=== PATIENT | female | born 1965 | race Caucasian/White ===

== ENCOUNTER 2019-04-01 15:24 | Outpatient (CLI) | payer BC ==
--- NOTE | 2019-04-01 17:27 | RAD ---
RIGHT KNEE FOUR VIEWS: HISTORY: Rheumatoid arthritis. Injury after a fall today. Right knee pain. FINDINGS: There is no evidence of a fracture, dislocation, or other osseous abnormality. No osseous erosions a re seen. IMPRESSION: No acute osseous abnormality, right knee. POS: [facility]
--- NOTE | 2019-04-01 17:30 | RAD ---
LEFT KNEE FOUR VIEWS: HISTORY: Left knee pain in a patient with a history of rheumatoid arthritis. The patient fell today. Left kn ee pain. FINDINGS: There is no evidence of a fracture or dislocation. No joint space narrowing is seen. There is a sub centimeter sclerotic density seen in the proximal diaphysis of the femur, probably related to a small bone island. IMPRESSION: No acute osseous abnormality, left knee. POS: [facility]
--- NOTE | 2019-04-01 17:32 | RAD ---
RIGHT FOOT THREE VIEWS: HISTORY: Right foot pain after fall today. History of rheumatoid arthritis. COMPARISON: None. FINDINGS: Small erosions are seen at the medial aspect, metatarsal head, 5th toe. There is also suggestion of a tiny erosion at the base of the distal phalanx great toe. There is mild osteoarthritis involving t he first metatarsophalangeal joint, as well as the interphalangeal joint. No fracture, dislocation, or other osseous abnormality is seen involving the right foot. IMPRESSION: No acute osseous abnormality. POS: [facility]
--- NOTE | 2019-04-01 17:33 | RAD ---
RIGHT HAND THREE VIEWS: HISTORY: Fall today with right hand pain. COMPARISON: None. FINDINGS: Three views of the right hand show no evidence of acute fracture or dislocation. Severe degenerative change is seen surrounding the DIP joint of the index finger. IMPRESSION: Severe degenerative change surrounding the distal interphalangeal joint of the index finger. A fract ure through this region cannot be entirely excluded. Correlate with point tenderness in this locatio n. POS: [facility]
--- NOTE | 2019-04-01 17:35 | RAD ---
LEFT HAND THREE VIEWS: HISTORY: Fall today with left hand pain. FINDINGS: Three views of the left hand show no evidence of acute fracture or dislocation. There is degenerativ e change in the DIP joint of the index finger. Mild degenerative change is also seen in the first CM C joint. IMPRESSION: Degenerative changes without acute osseous abnormality. POS: [facility]
--- NOTE | 2019-04-01 17:35 | RAD ---
THREE VIEWS LEFT FOOT: 04/01/19 HISTORY: Left foot pain after a fall today. History of rheumatoid arthritis. FINDINGS: There is probably osteoarthritis involving the first metatarsophalangeal joint and to a lesser extent involving the interphalangeal joint great toe. No fracture or dislocation is seen. No juxta-articula r erosions are appreciated. The Lisfranc joint is normally aligned. No other findings. k IMPRESSION: 1. No acute osseous abnormality. 2. Prominent osteoarthritis first metatarsophalangeal joint. POS: [facility]
== END 2019-04-01 15:25 | disposition home or self-care (01) ==
LOC: BICRAD 15:24
PROVIDERS: ATTEND Internal Medicine Rheumatology
DX: M18.0 Bilateral primary osteoarthritis of first carpometacarpal joints (principal); M06.09 Rheumatoid arthritis without rheumatoid factor, multiple sites; M19.072 Primary osteoarthritis, left ankle and foot; M19.042 Primary osteoarthritis, left hand; M19.041 Primary osteoarthritis, right hand; Z79.899 Other long term (current) drug therapy
CPT/HCPCS: 36415; 82306; 82565; 84450; 84460; 85025; 85652; 86140

== ENCOUNTER 2019-12-03 15:16 | Emergency (ER) | payer BC, OTHER ==
[2019-12-03] MEDS ORDERED: Albuterol 200 PUFF (6.7GM INHALER) ONE (16:09)
[2019-12-03 16:40] LABS: #Basophils 0.1 thou/uL (0.0-0.2); #Eosinphils 0.1 thou/uL (0.0-0.7); #Lymphocytes 2.3 thou/uL (1.20-3.40); #Monocytes 0.6 thou/uL (0.11-0.59); %Eosinophils 1.4 % (0.0-10.0); %Lymphocytes 25.6 % (21.0-51.0); %Monocytes 6.1 % (0.0-10.0); %Neutrophils 65.9 % (42.0-75.0); Hemoglobin 12.6 g/dL (12.0-16.0); Mean Corpuscular HGB CONC 33.6 g/dL (32.0-36.0); Mean Corpuscular Hemoglobin 29.8 pg (27.0-31.0); Mean Corpuscular Volume 88.8 fL (78.0-98.0); Mean Platelet Volume 6.9 fL (7.4-10.4); Platelet Count 414 thou/uL (130-400); RBC Distribution Width 13.7 % (11.5-14.5); Red Blood Cell (RBC) Count 4.23 mill/uL (4.20-5.40)
[2019-12-03 17:02] LABS: ALT (SGPT) 14 U/L (8-55); AST (SGOT) 14 U/L (5-34); Albumin 4.2 g/dL (3.5-5.0); Alkaline Phosphatase 145 U/L (40-110); Anion Gap 15 mmol/L (10-20); BUN (Urea Nitrogen) 6 mg/dL (9.8-20.1); Bilirubin, Total 0.5 mg/dL (0.2-1.2); Calc. Creatinine Clearance 0 mL/min (70-130); Calcium 9.8 mg/dL (7.8-10.44); Carbon Dioxide 27 mmol/L (22-29); Chloride 100 mmol/L (98-107); Estimated GFR-MDRD 78; Globulin 3.5 g/dL (2.4-3.5); Glucose 101 mg/dL (70-105); Potassium 3.6 mmol/L (3.5-5.1); Protein, Total 7.7 g/dL (6.0-8.3); Sodium 138 mmol/L (136-145)
--- NOTE | 2019-12-03 17:35 | RAD ---
RADIOGRAPH CHEST 1 VIEW: DATE: 12/03/2019 HISTORY: 54-year-old female with cough and fever FINDINGS: There are no airspace densities, pulmonary edema, pneumothorax, or cardiomegaly. The lateral costophr enic angles are sharp. IMPRESSION: No acute cardiopulmonary findings.
[2019-12-03] MEDS ORDERED: predniSONE 20 MG TAB ONE (17:56)
[2019-12-03] MEDS ORDERED: Azithromycin 250 MG TAB ONE (17:56)
== END 2019-12-03 18:44 | disposition home or self-care (01) ==
LOC: ERS 15:16
DX: J44.1 Chronic obstructive pulmonary disease with (acute) exacerbation (principal); M19.90 Unspecified osteoarthritis, unspecified site; Z87.891 Personal history of nicotine dependence; Z79.51 Long term (current) use of inhaled steroids; Z79.891 Long term (current) use of opiate analgesic; Z79.899 Other long term (current) drug therapy
CPT/HCPCS: 71045; 80053; 83880; 84484; 85025; 87804; 93005; J7512; U0001

== ENCOUNTER 2020-03-03 22:14 | Inpatient (IN) | payer MEDICARE, BC, OTHER ==
[2020-03-04 01:37] VITALS: BMI 30.4
[2020-03-04] MEDS ORDERED: Acetaminophen 325 MG TAB PO PRN (02:52)
[2020-03-04] MEDS ORDERED: Calcium Carbonate 500 MG ChewTAB PO PRN (02:52)
[2020-03-04] MEDS ORDERED: Ondansetron ODT 4 MG TAB PO PRN (02:52)
[2020-03-04] MEDS ORDERED: Ondansetron PF 4 MG/2 ML Vial IVP PRN (02:52)
--- NOTE | 2020-03-04 03:55 | HP ---
PRIMARY CARE PHYSICIAN: Dr. Nagel. CHIEF COMPLAINT: Nausea, vomiting, and diarrhea. HISTORY OF PRESENT ILLNESS: The patient is a 55-year-old female, with past medical history significant for COPD and degenerative disk disease, who presents to [facility] for the above complaint. The patient reports that her symptoms started with a nonproductive cough and general malaise approximately 4 days ago. She then developed a headache that was generalized with a subjective fever. Over the past 24 hours, she has developed nausea, vomiting, and diarrhea. She reports approximately eight episodes of vomiting, some of which dry heaving. She denies any hematemesis. She has some associated abdominal pain. She reports approximately 10 watery stools in the past 24 hours. She denies any hematochezia or melena. She denies any dysuria. She denies any chest pain or shortness of breath. For these reasons, she presented to the [facility]. At the [facility], vital signs, patient had a fever of 101.3 with a normal blood pressure. She was tachycardic at 109, respirations were 20. She was 92% on room air. EKG was sinus rhythm. CT of the abdomen and pelvis showed lung base consolidation and ground-glass opacities. Right upper quadrant ultrasound showed patchy left greater than right lower lobe consolidation and ground-glass opacities concerning for multifocal pneumonia or atypical viral infection. CT of the chest was performed, but I am unable to find the results in the paperwork. Viral panel was negative. COVID antigen test was negative. Patient had a lactic acid of 2.7. WBCs were 13.4. BUN and creatinine were 21 and 1.0 respectively. ABG; pH is 7.39, pCO2 of 36.5, bicarb of 22.1, and PO2 of 37. LFTs were unremarkable and UA was unremarkable. Patient was given Dilaudid and Zofran, azithromycin and Rocephin and 2 L of normal saline with some symptom improvement. PAST MEDICAL HISTORY: 1. COPD. 2. Degenerative disk disease. 3. Osteoporosis. SURGICAL HISTORY: 1. Hysterectomy. 2. . SOCIAL HISTORY: The patient lives with her family. She has no history of smoking, illicit drug use, or alcohol intake. FAMILY HISTORY: Noncontributory to this case. ALLERGIES: SULFA. HOME MEDICATIONS: 1. Lyrica 150 mg p.o. t.i.d. 2. Fentanyl (Duragesic) patch 75 mcg transdermal q.3 days. 3. Advair HFA inhaler two inhalations daily. 4. Spiriva 18 mcg inhalation daily. 5. Valtrex 500 mg p.o. daily. 6. Lamictal 100 mg p.o. b.i.d. REVIEW OF SYSTEMS: All review of systems are negative unless otherwise stated in the HPI. PHYSICAL EXAMINATION: VITAL SIGNS: Temperature 98.5, blood pressure 106/62, heart rate 88, respirations 16, and SpO2 is 94% on 3 L nasal cannula. CONSTITUTIONAL: The patient is alert and oriented to person, place, and time. She is uncomfortable and nontoxic in appearance. HEAD: Atraumatic and normocephalic. EYES: PERRLA. Extraocular muscles intact. ENT: Nares patent bilaterally. Oropharynx clear. Uvula midline. Moist mucous membranes. No oral lesions. NECK: Supple. Trachea midline. No cervical adenopathy. Full range of motion. No neck stiffness. No JVD. RESPIRATIONS: Even and nonlabored. Rhonchi and rales auscultated throughout. CARDIOVASCULAR: S1, S2 appreciated. No murmurs, rubs, or gallops. ABDOMEN: Mildly diffuse tenderness to palpation. Abdomen is soft. Active bowel sounds. No rigidity. No guarding. No rebound tenderness. Negative Rovsing sign. Negative Gibson sign. BACK: No central spinous tenderness. No CVA tenderness. Full range of motion. MUSCULOSKELETAL: Arms, upper extremities, full range of motion, normal strength, sensation intact. Palpable radial pulses. Legs, full range of motion. Strength normal. Sensation intact. Palpable pedal pulses. No swelling. NEUROLOGIC: Patient is alert and oriented to person, place, and time. Moving all extremities. No focal deficits. PSYCHIATRIC: Normal affect. Oriented to person, place, and time. LABORATORIES AND DIAGNOSTICS: EKG, sinus rhythm. CT abdomen and pelvis, lung bases show consolidation, ground-glass opacities. Right upper quadrant ultrasound showed patchy left greater than right lower lobe consolidation and ground-glass opacities concerning for multifocal pneumonia or atypical viral infection. Viral panel was negative. Lactic acid of 2.7. Sodium 134, potassium 3.3, chloride 95, CO2 of 22, BUN 21, creatinine 1.0, glucose 85, T bili 0.8, alk phos 74, ALT 30, and AST 72. UA was unremarkable. WBCs 13.4, hemoglobin 13, hematocrit 38.1, and platelets 265. ABG; pH 7.39, pCO2 of 36.5, bicarb 22.1, and PO2 of 37. IMPRESSION AND PLAN: 1. Sepsis. We will admit the patient to telemetry floor inpatient status. Expected length of stay greater than two midnights. Patient presented to the [facility] febrile, tachycardic, and hypoxic. Lactic acid of 2.7. WBCs of 13.4. CT of the abdomen and pelvis consistent for multifocal pneumonia. COVID test was negative. Viral panel was negative. Patient is currently on 3 L nasal cannula, saturating 94%. No respiratory distress. We will continue Rocephin and azithromycin. We will recheck repeat lactic acid. Blood cultures are pending. We will obtain stool cultures, Clostridium difficile, ova and parasite. We will check acute phase reactants, CRP, D-dimer, and ferritin level. We will get a lipase, magnesium, and TSH level. 2. Pneumonia. CT consistent with multifocal lobar pneumonia. We will continue antibiotics and supportive care. 3. Dehydration. Patient presented with a BUN of 21 and a creatinine of 1.0. Patient received 2 L of normal saline at the [facility]. We will recheck levels in the a.m. 4. Hypokalemia, mild. Patient presented with a potassium of 3.3. We will give 40 mEq and we will recheck in the a.m. We will also recheck Mag level. 5. Chronic obstructive pulmonary disease. Patient is in no acute respiratory distress, saturating 92% on 3 L nasal cannula. We will restart the patient's home MDI inhalers. 6. Degenerative disk disease. Patient takes Lyrica and has a Duragesic patch. We will restart home medications when reconciled by nursing. 7. Lovenox for deep venous thrombosis prophylaxis and Pepcid for GI prophylaxis. Consult Physical Therapy. Patient is a full code. 8. Discussed this case with Dr. Deluca. Job ID: [id number]
[2020-03-04 05:12] LABS: Anion Gap 15 mmol/L (10-20); BUN (Urea Nitrogen) 15 mg/dL (9.8-20.1); Calc. Creatinine Clearance 84 mL/min (70-130); Calcium 8.4 mg/dL (7.8-10.44); Carbon Dioxide 22 mmol/L (22-29); Chloride 100 mmol/L (98-107); Estimated GFR-MDRD 69; Glucose 90 mg/dL (70-105); Lipase Less than 4 U/L (8-78); Magnesium 1.8 mg/dL (1.6-2.6); Potassium 3.2 mmol/L (3.5-5.1); Sodium 134 mmol/L (136-145)
[2020-03-04 05:22] LABS: CRP (Inflammatory) 30.73 mg/dL (= or < 0.5)
[2020-03-04 05:31] LABS: Ferritin 142.6 ng/mL (10-291); Thyroid Stimulating Hormone 0.5109 uIU/mL (0.35-4.94)
[2020-03-04 06:18] LABS: Band 29 % (5-11); Eosinophils 1 % (0-10); Hemoglobin 11.4 g/dL (12.0-16.0); Lymphocytes 6 % (21-51); MDiff Complete? YES; Mean Corpuscular HGB CONC 32.8 g/dL (32.0-36.0); Mean Corpuscular Hemoglobin 29.2 pg (27.0-31.0); Mean Corpuscular Volume 88.9 fL (78.0-98.0); Mean Platelet Volume 7.3 fL (7.4-10.4); Metamyelocyte 5 % (0-0); Monocytes 3 % (0-10); Myelocyte 2 % (0-0); Neutrophil 54 % (42-75); Platelet Count 256 thou/uL (130-400); RBC Distribution Width 13.9 % (11.5-14.5); White Blood Cell (WBC) Count 12.2 thou/uL (4.8-10.8)
[2020-03-04] MEDS ORDERED: Ipratropium Bromide 2.5 ml Neb NEB SCH (07:00)
[2020-03-04] MEDS: Mometasone 100 MCG/Formoterol 5 MCG 120 PUFF INHALER INH SCH ×2 (07:38→19:47)
[2020-03-04] MEDS ORDERED: Potassium Chloride 20 MEQ TAB PO SCH (09:00)
[2020-03-04] MEDS ORDERED: Famotidine/PF 20 mg/2ml Vial SLOW IVP SCH (09:00)
[2020-03-04] MEDS: valACYclovir 500 MG TAB PO SCH (09:40)
[2020-03-04] MEDS: Enoxaparin Sodium 40 MG/0.4 ML SYRINGE SC SCH (09:40)
[2020-03-04] MEDS: lamoTRIgine 100 MG TAB PO SCH ×2 (09:40→19:47)
--- NOTE | 2020-03-04 12:49 | PDOC.HOSPP ---
- Subjective Encounter Date: 03/04/20 Encounter Time: 11:20 Subjective: c/o left lower rib cage pain on deep breathing or moving says above is due to pna which she has before 4-5 times in the past no sob or palp she sees for pain mgmt, has fentanyl patch - Objective Vital Signs & Weight: Vital Signs (12 hours) Temp Pulse Resp BP Pulse Ox 03/04/20 11:30 98.7 F 75 20 84/47 L 93 L 03/04/20 09:45 98.9 F 79 14 99/51 L 96 03/04/20 04:00 98.4 F 86 16 90/53 L 95 03/04/20 01:58 94 L 03/04/20 01:31 98.5 F 88 16 106/62 94 L Weight Weight 161 lb I&O: 03/03/20 03/04/20 03/05/20 06:59 06:59 06:59 Intake Total 240 Output Total 900 Balance -660 Result Diagrams: 03/04/20 04:11 03/04/20 04:11 Hospitalist ROS - Medication Medications: Active Medications Generic Name Dose Route Start Last Admin Trade Name Freq PRN Reason Stop Dose Admin Enoxaparin Sodium 40 mg 03/04/20 09:00 03/04/20 09:40 Lovenox SC 40 mg 0900 GERALD Administration Lamotrigine 100 mg 03/04/20 09:00 03/04/20 09:40 Lamictal PO 100 mg BID GERALD Administration Mometasone Furoate/Formoterol Fumar 2 puff 03/04/20 06:30 03/04/20 07:38 Dulera 100 Mcg/5 Mcg Inhaler INH 2 puff BID-RT GERALD Administration Pantoprazole Sodium 40 mg 03/04/20 09:00 03/04/20 09:40 Protonix PO 40 mg DAILY GERALD Administration Valacyclovir HCl 500 mg 03/04/20 09:00 03/04/20 09:40 Valtrex PO 500 mg DAILY GERALD Administration - Exam General Appearance: awake alert Eye: PERRL, anicteric sclera ENT: no oropharyngeal lesions, moist mucosa Neck: supple, no JVD Heart: RRR, no murmur Respiratory: no wheezes, no rales Gastrointestinal: soft, non-tender, non-distended, normal bowel sounds Extremities: no cyanosis, no edema Neurological: cranial nerve grossly intact, no focal deficits Psychiatric: normal affect, A&O x 3 Hosp A/P (1) PNA (pneumonia) Code(s): J18.9 - PNEUMONIA, UNSPECIFIED ORGANISM Status: Acute Qualifiers: Pneumonia type: due to unspecified organism Laterality: bilateral (2) Chronic pain syndrome Code(s): G89.4 - CHRONIC PAIN SYNDROME Status: Chronic (3) Low back ache Code(s): M54.5 - LOW BACK PAIN Status: Chronic Qualifiers: Chronicity: chronic Back pain laterality: bilateral (4) COPD (chronic obstructive pulmonary disease) Status: Chronic Qualifiers: COPD type: chronic bronchitis - Plan she has seen in the past per patient await covid 19 results is on ceftriaxone and zithromax add lidocaine tts and motrin for pleuritic pain continue her home dose fentanyl tts nebs prn dc plan in 24hrs if she remains stable she needs to ambulate in the room/oob to chair
--- NOTE | 2020-03-04 13:21 | RAD ---
PORTABLE CHEST: Date: 03/04/2020 HISTORY: Pneumonia follow-up. COMPARISON: Most recent exam available of 12/03/2019. FINDINGS: Heart size is within normal limits. There are bibasilar lung changes which have more of a confluent a ppearance suggestive of infiltrate. IMPRESSION: Bibasilar infiltrates. POS: [facility]
[2020-03-04] MEDS: Pregabalin 75 MG CAP PO SCH (19:46)
[2020-03-04] MEDS: Ibuprofen 200 MG TAB PO PRN (19:47)
[2020-03-04] MEDS: Lidocaine 5% Patch TD SCH (19:48)
[2020-03-04] MEDS ORDERED: Azithromycin 500 MG in Sodium Chloride 0.9% 250 ML 250 ML IVPB SCH (20:00)
[2020-03-04] MEDS ORDERED: cefTRIAXone\\ROCEPHIN 1 GM in Sodium Chloride 0.9% 100 ML IVPB SCH (21:00)
[2020-03-04] MEDS: Guaifenesin DM 100-10/5 ML UDCUP PO PRN (21:57)
[2020-03-04] MEDS ORDERED: Citalopram 20 MG TAB PO SCH (22:15)
[2020-03-05] MEDS: Ibuprofen 200 MG TAB PO PRN ×2 (04:31→13:22)
[2020-03-05] MEDS: Mometasone 100 MCG/Formoterol 5 MCG 120 PUFF INHALER INH SCH ×2 (04:32→19:36)
[2020-03-05] MEDS ORDERED: Lidocaine 5% Patch TD SCH (09:00)
[2020-03-05] MEDS ORDERED: Tiotropium Bromide 4 GM INHALER IH SCH (09:00)
[2020-03-05] MEDS: Pregabalin 75 MG CAP PO SCH ×3 (09:11→20:44)
[2020-03-05] MEDS: Enoxaparin Sodium 40 MG/0.4 ML SYRINGE SC SCH (09:11)
[2020-03-05] MEDS: lamoTRIgine 100 MG TAB PO SCH ×2 (09:12→20:43)
[2020-03-05] MEDS: valACYclovir 500 MG TAB PO SCH (09:12)
[2020-03-05] MEDS: Lidocaine Patch Removal 1 EACH TOP SCH (09:12)
[2020-03-05] MEDS: Nystatin 500,000 UNITS/5 ML UDCUP SSW SCH ×3 (11:44→20:44)
[2020-03-05] MEDS ORDERED: Iopamidol-370 76% 500 ML 1 ML ONE (12:07)
[2020-03-05 12:22] LABS: SARS-CoV-2 MS2 Positive; SARS-CoV-2 N Gene Negative; SARS-CoV-2 S Gene Negative; SARS-CoV-2 orf1ab Negative
--- NOTE | 2020-03-05 12:23 | PDOC.HOSPP ---
- Subjective Encounter Date: 03/05/20 Encounter Time: 10:30 Subjective: has hoarseness her ruq and rib cage pain is better with lidocaine tts and motrin is needing nasal canula oxygen - Objective Vital Signs & Weight: Vital Signs (12 hours) Temp Pulse Resp BP Pulse Ox 03/05/20 12:00 98.9 F 72 18 105/58 L 97 03/05/20 09:11 95 03/05/20 08:00 98.9 F 64 18 98/52 L 95 03/05/20 04:00 98.2 F 71 20 102/57 L 100 Weight Weight 161 lb I&O: 03/04/20 03/05/20 03/06/20 06:59 06:59 06:59 Intake Total 240 1600 Output Total 900 Balance -660 1600 Result Diagrams: 03/04/20 04:11 03/04/20 04:11 Hospitalist ROS - Medication Medications: Active Medications Generic Name Dose Route Start Last Admin Trade Name Freq PRN Reason Stop Dose Admin Enoxaparin Sodium 40 mg 03/04/20 09:00 03/05/20 09:11 Lovenox SC 40 mg 09 GERALD Administration Fentanyl 25 mcg 03/04/20 16:45 03/04/20 17:57 Duragesic TD 25 mcg Q3D GERALD Administration Guaifenesin/Dextromethorphan 15 ml 03/04/20 03:02 03/04/20 21:57 Robitussin Dm PO 15 ml Q4H PRN Administration Cough Ibuprofen 400 mg 03/04/20 12:47 03/05/20 04:31 Motrin PO 400 mg Q8H PRN Administration left rib cage pain Lamotrigine 100 mg 03/04/20 09:00 03/05/20 09:12 Lamictal PO 100 mg BID GERALD Administration Lidocaine 1 patch 03/04/20 20:00 03/04/20 19:48 Lidoderm 5% Patch TD 1 patch 2000 GERALD Administration Miscellaneous Medication 1 each 03/05/20 08:00 03/05/20 09:12 Lidocaine Patch Removal TOP 1 each 08 GERALD Administration Mometasone Furoate/Formoterol Fumar 2 puff 03/04/20 06:30 03/05/20 04:32 Dulera 100 Mcg/5 Mcg Inhaler INH 2 puff BID-RT GERALD Administration Nystatin 500,000 units 03/05/20 13:00 03/05/20 11:44 Mycostatin SSW 500,000 units QID GERALD Administration Ondansetron HCl 4 mg 03/04/20 02:52 03/05/20 11:55 Zofran Odt PO 4 mg Q6H PRN Administration Nausea/Vomiting Ondansetron HCl 4 mg 03/04/20 02:52 03/04/20 20:19 Zofran IVP 4 mg Q6H PRN Administration Nausea/Vomiting Pantoprazole Sodium 40 mg 03/04/20 09:00 03/05/20 09:12 Protonix PO 40 mg DAILY GERALD Administration Pregabalin 150 mg 03/04/20 21:00 03/05/20 09:11 Lyrica PO 150 mg TID GERALD Administration Valacyclovir HCl 500 mg 03/04/20 09:00 03/05/20 09:12 Valtrex PO 500 mg DAILY GERALD Administration - Exam General Appearance: awake alert Eye: PERRL, anicteric sclera ENT: dry oral mucosa Neck: supple, no JVD Heart: RRR, no murmur Respiratory: no wheezes, no rales Gastrointestinal: soft, non-tender, non-distended, normal bowel sounds Extremities: no cyanosis, no edema Neurological: cranial nerve grossly intact, no focal deficits Psychiatric: normal affect, A&O x 3 Hosp A/P (1) Acute respiratory failure with hypoxia Code(s): J96.01 - ACUTE RESPIRATORY FAILURE WITH HYPOXIA Status: Acute (2) PNA (pneumonia) Code(s): J18.9 - PNEUMONIA, UNSPECIFIED ORGANISM Status: Acute Qualifiers: Pneumonia type: due to unspecified organism Laterality: bilateral (3) Chronic pain syndrome Code(s): G89.4 - CHRONIC PAIN SYNDROME Status: Chronic (4) Low back ache Code(s): M54.5 - LOW BACK PAIN Status: Chronic Qualifiers: Chronicity: chronic Back pain laterality: bilateral (5) COPD (chronic obstructive pulmonary disease) Status: Chronic Qualifiers: COPD type: chronic bronchitis - Plan she has seen in the past per patient await covid 19 results is on omnicef will get CT chest and abd in view of ongoing ruq and right rib cage pain to r/o abscess/intra-abd path is needing oxygen this am to keep spo2 >90% add lidocaine tts and motrin for pleuritic pain continue her home dose fentanyl tts nebs prn she needs to ambulate in the room/oob to chair will f/u blood cs
--- NOTE | 2020-03-05 14:35 | CT ---
CT CHEST WITH IV CONTRAST: 03/05/20 PROVIDED CLINICAL HISTORY: Chest pain. FINDINGS: Comparison is made with the radiograph performed 03/04/20. The heart, pericardium, and great vessels are suboptimally evaluated in the absence of IV contrast ma terial. Vascular calcification including minimal coronary calcium. There is conspicuous bibasilar lung consolidation and more patchy air space disease involving the petra gula. There is a small right pleural effusion. There is no evidence for pneumothorax or significant l eft pleural fluid. The airway appears patent and of normal caliber. There is no evidence for thoracic lymph node enlarge ment with limitations due to lack of IV contrast material. The visualized portions of the upper abdomen appear unremarkable. The osseous structures demonstrate no concerning lytic or blastic lesions. No evidence for rib fracture. IMPRESSION: Extensive bibasilar lung consolidation, compatible with pneumonia. Small amount of right pleural flui d. POS: [facility]
--- NOTE | 2020-03-05 16:17 | CT ---
CT ABDOMEN AND PELVIS WITH IV CONTRAST: 03/05/20 PROVIDED CLINICAL HISTORY: Right upper quadrant pain. FINDINGS: As noted on prior chest CT, there is bibasilar lung consolidation and a small amount of right pleural fluid. The liver, spleen, pancreas, kidneys and adrenal glands demonstrate No significant abnormality. There is no bowel dilatation, inflammatory fat stranding, free fluid or free air apparent. The append ix appears normal. The gallbladder is decompressed. Scattered vascular calcifications are seen. The osseous structures d emonstrate no concerning lytic or blastic lesions. Lower lumbar spine postoperative changes are seen. IMPRESSION: 1. Bibasilar lung consolidation compatible with pneumonia with small right pleural fluid. 2. No evidence for an acute process involving the abdomen and pelvis. POS: [facility]
[2020-03-05] MEDS: Cefdinir 300 MG CAP PO SCH (20:43)
[2020-03-05] MEDS: Lidocaine 5% Patch TD SCH (20:43)
[2020-03-05] MEDS: Citalopram 20 MG TAB PO SCH (20:44)
[2020-03-05] MEDS ORDERED: Lidocaine Patch Removal 1 EACH TOP SCH (21:00)
[2020-03-05] MEDS: Guaifenesin DM 100-10/5 ML UDCUP PO PRN (23:13)
[2020-03-06] MEDS ORDERED: Diabetic Tussin DM 5 ML UDCUP PO PRN (04:42)
[2020-03-06] MEDS: Ibuprofen 200 MG TAB PO PRN (04:45)
[2020-03-06] MEDS: Mometasone 100 MCG/Formoterol 5 MCG 120 PUFF INHALER INH SCH ×2 (06:53→19:05)
[2020-03-06] MEDS: Pregabalin 75 MG CAP PO SCH ×3 (08:53→21:04)
[2020-03-06] MEDS: Nystatin 500,000 UNITS/5 ML UDCUP SSW SCH ×4 (08:53→21:02)
[2020-03-06] MEDS: Cefdinir 300 MG CAP PO SCH ×2 (08:53→21:07)
[2020-03-06] MEDS: lamoTRIgine 100 MG TAB PO SCH ×2 (08:55→21:06)
[2020-03-06] MEDS: Enoxaparin Sodium 40 MG/0.4 ML SYRINGE SC SCH (08:55)
[2020-03-06] MEDS: valACYclovir 500 MG TAB PO SCH (08:55)
[2020-03-06] MEDS: Lidocaine Patch Removal 1 EACH TOP SCH (09:02)
[2020-03-06] MEDS ORDERED: Polyethylene Glycol 3350 17 GM Packet PO SCH (11:30)
[2020-03-06] MEDS ORDERED: guaiFENesin ER 600 MG TAB PO SCH (11:30)
[2020-03-06] MEDS: methylPREDNISolone Sod Succ 40 MG VIAL IVP SCH ×2 (13:14→21:08)
--- NOTE | 2020-03-06 13:47 | PDOC.HOSPP ---
- Subjective Encounter Date: 03/06/20 Encounter Time: 08:30 Subjective: c/o dry coughing spells voice is better today has not ambulated much - Objective Vital Signs & Weight: Vital Signs (12 hours) Temp Pulse Resp BP Pulse Ox 03/06/20 13:04 97.9 F 80 18 92/62 90 L 03/06/20 08:40 92 L 03/06/20 08:00 98.7 F 77 18 92/60 03/06/20 04:00 98.3 F 76 16 102/66 93 L Weight Weight 161 lb I&O: 03/05/20 03/06/20 03/07/20 06:59 06:59 06:59 Intake Total 1600 1200 Balance 1600 1200 Result Diagrams: 03/04/20 04:11 03/04/20 04:11 Hospitalist ROS - Medication Medications: Active Medications Generic Name Dose Route Start Last Admin Trade Name Freq PRN Reason Stop Dose Admin Acetaminophen 650 mg 03/04/20 02:52 03/06/20 08:52 Tylenol PO 650 mg Q4H PRN Administration Headache/Fever/Mild Pain (1-3) Cefdinir 300 mg 03/05/20 21:00 03/06/20 08:53 Omnicef PO 300 mg BID GERALD Administration Citalopram Hydrobromide 20 mg 03/05/20 21:00 03/05/20 20:44 Celexa PO 20 mg HS GERALD Administration Enoxaparin Sodium 40 mg 03/04/20 09:00 03/06/20 08:55 Lovenox SC 40 mg 0900 GERALD Administration Fentanyl 25 mcg 03/04/20 16:45 03/04/20 17:57 Duragesic TD 25 mcg Q3D GERALD Administration Guaifenesin/Dextromethorphan 15 ml 03/06/20 04:42 03/06/20 05:17 Diabetic Tussin Dm PO 15 ml Q4H PRN Administration Cough Ibuprofen 400 mg 03/04/20 12:47 03/06/20 04:45 Motrin PO 400 mg Q8H PRN Administration left rib cage pain Lamotrigine 100 mg 03/04/20 09:00 03/06/20 08:55 Lamictal PO 100 mg BID GERALD Administration Lidocaine 1 patch 03/04/20 20:00 03/05/20 20:43 Lidoderm 5% Patch TD 1 patch 2000 GERALD Administration Methylprednisolone Sodium Succinate 20 mg 03/06/20 14:00 03/06/20 13:14 Solu-Medrol IVP 20 mg Q8HR GERALD Administration Miscellaneous Medication 1 each 03/05/20 08:00 03/06/20 09:02 Lidocaine Patch Removal TOP 1 each 0800 GERALD Administration Mometasone Furoate/Formoterol Fumar 2 puff 03/04/20 06:30 03/06/20 06:53 Dulera 100 Mcg/5 Mcg Inhaler INH 2 puff BID-RT GERALD Administration Nystatin 500,000 units 03/05/20 13:00 03/06/20 13:13 Mycostatin SSW 500,000 units QID GERALD Administration Ondansetron HCl 4 mg 03/04/20 02:52 03/05/20 11:55 Zofran Odt PO 4 mg Q6H PRN Administration Nausea/Vomiting Ondansetron HCl 4 mg 03/04/20 02:52 03/04/20 20:19 Zofran IVP 4 mg Q6H PRN Administration Nausea/Vomiting Pantoprazole Sodium 40 mg 03/04/20 09:00 03/06/20 08:55 Protonix PO 40 mg DAILY GERALD Administration Pregabalin 150 mg 03/04/20 21:00 03/06/20 08:53 Lyrica PO 150 mg TID GERALD Administration Valacyclovir HCl 500 mg 03/04/20 09:00 03/06/20 08:55 Valtrex PO 500 mg DAILY GERALD Administration - Exam General Appearance: awake alert Eye: PERRL, anicteric sclera ENT: no oropharyngeal lesions, moist mucosa Neck: supple, no JVD Heart: RRR, no murmur Respiratory: no wheezes, no rales Gastrointestinal: soft, non-tender, non-distended, normal bowel sounds Extremities: no cyanosis, no edema Neurological: cranial nerve grossly intact, no focal deficits Psychiatric: normal affect, A&O x 3 Hosp A/P (1) Acute respiratory failure with hypoxia Code(s): J96.01 - ACUTE RESPIRATORY FAILURE WITH HYPOXIA Status: Acute (2) PNA (pneumonia) Code(s): J18.9 - PNEUMONIA, UNSPECIFIED ORGANISM Status: Acute Qualifiers: Pneumonia type: due to unspecified organism Laterality: bilateral (3) Chronic pain syndrome Code(s): G89.4 - CHRONIC PAIN SYNDROME Status: Chronic (4) Low back ache Code(s): M54.5 - LOW BACK PAIN Status: Chronic Qualifiers: Chronicity: chronic Back pain laterality: bilateral (5) COPD (chronic obstructive pulmonary disease) Status: Chronic Qualifiers: COPD type: chronic bronchitis - Plan she has seen in the past per patient covid 19 is -ve is on omnicef, nebs, pulmicort, singulair, tessalon, mucinex is needing oxygen to keep spo2 >90%, needs to ambulate and be oob to get it higher, counselled regarding the same she also needs to give her voice a bit of rest to improve laryngitis/?oral candidiasis on lidocaine tts and motrin for pleuritic pain continue her home dose fentanyl tts dc plan when she is off nasal canula, ?am
[2020-03-06 14:05] LABS: #Eosinphils 0.1 thou/uL (0.0-0.7); #Lymphocytes 2.1 thou/uL (1.20-3.40); #Monocytes 0.6 thou/uL (0.11-0.59); #Neutrophils 3.7 thou/uL (1.40-6.50); %Basophils 0.6 % (0.0-1.0); %Eosinophils 1.6 % (0.0-10.0); %Monocytes 8.8 % (0.0-10.0); Hemoglobin 11.6 g/dL (12.0-16.0); Mean Corpuscular HGB CONC 33.7 g/dL (32.0-36.0); Mean Corpuscular Hemoglobin 29.8 pg (27.0-31.0); Mean Corpuscular Volume 88.6 fL (78.0-98.0); Platelet Count 361 thou/uL (130-400); RBC Distribution Width 13.9 % (11.5-14.5); White Blood Cell (WBC) Count 6.5 thou/uL (4.8-10.8)
[2020-03-06 14:31] LABS: Anion Gap 13 mmol/L (10-20); BUN (Urea Nitrogen) 6 mg/dL (9.8-20.1); Calc. Creatinine Clearance 94 mL/min (70-130); Calcium 9.8 mg/dL (7.8-10.44); Carbon Dioxide 29 mmol/L (22-29); Chloride 101 mmol/L (98-107); Estimated GFR-MDRD 78; Glucose 118 mg/dL (70-105); Potassium 3.7 mmol/L (3.5-5.1); Sodium 139 mmol/L (136-145)
[2020-03-06] MEDS: Benzonatate 100 MG CAP PO SCH ×2 (16:46→21:06)
[2020-03-06] MEDS: Budesonide 0.5 MG/2 ML NEB INH SCH (19:05)
[2020-03-06] MEDS ORDERED: Montelukast Sodium 10 mg Tablet PO SCH (21:00)
[2020-03-06] MEDS: Lidocaine 5% Patch TD SCH (21:07)
[2020-03-06] MEDS: guaiFENesin ER 600 MG TAB PO SCH (21:07)
[2020-03-06] MEDS: Citalopram 20 MG TAB PO SCH (21:07)
[2020-03-07] MEDS ORDERED: Melatonin 3 MG TAB PO SCH ×2 (02:00→21:00)
[2020-03-07] MEDS: Budesonide 0.5 MG/2 ML NEB INH SCH (07:02)
[2020-03-07] MEDS: Mometasone 100 MCG/Formoterol 5 MCG 120 PUFF INHALER INH SCH (07:09)
[2020-03-07] MEDS ORDERED: predniSONE 20 MG TAB PO SCH (08:00)
[2020-03-07] MEDS: guaiFENesin ER 600 MG TAB PO SCH (08:21)
[2020-03-07] MEDS: Cefdinir 300 MG CAP PO SCH (08:21)
[2020-03-07] MEDS: Benzonatate 100 MG CAP PO SCH ×2 (08:21→14:30)
[2020-03-07] MEDS: valACYclovir 500 MG TAB PO SCH (08:21)
[2020-03-07] MEDS: lamoTRIgine 100 MG TAB PO SCH (08:21)
[2020-03-07] MEDS: Nystatin 500,000 UNITS/5 ML UDCUP SSW SCH ×2 (08:21→14:30)
[2020-03-07] MEDS: Enoxaparin Sodium 40 MG/0.4 ML SYRINGE SC SCH (08:22)
[2020-03-07] MEDS: Pregabalin 75 MG CAP PO SCH ×2 (08:22→14:31)
[2020-03-07] MEDS: Lidocaine Patch Removal 1 EACH TOP SCH (08:26)
[2020-03-07] MEDS ORDERED: Polyethylene Glycol 3350 17 GM Packet PO SCH (09:00)
--- NOTE | 2020-03-07 12:23 | PDOC.HOSPP ---
- Subjective Encounter Date: 03/07/20 Encounter Time: 09:00 Subjective: no new complaints says she will ambulate with PT today - Objective Vital Signs & Weight: Vital Signs (12 hours) Temp Pulse Resp BP Pulse Ox Pulse Ox Pulse Ox 03/07/20 10:31 72 18 94 L 03/07/20 09:16 94 L 93 L 03/07/20 08:03 98.4 F 82 18 108/70 90 L 03/07/20 08:00 93 L 03/07/20 07:02 85 20 95 Pulse Ox Pulse Ox 03/07/20 10:31 03/07/20 09:16 91 L 92 L 03/07/20 08:03 03/07/20 08:00 03/07/20 07:02 Weight Weight 161 lb I&O: 03/06/20 03/07/20 03/08/20 06:59 06:59 06:59 Intake Total 1200 1200 Balance 1200 1200 Result Diagrams: 03/06/20 13:52 03/06/20 13:52 Hospitalist ROS - Medication Medications: Active Medications Generic Name Dose Route Start Last Admin Trade Name Freq PRN Reason Stop Dose Admin Acetaminophen 650 mg 03/04/20 02:52 03/06/20 08:52 Tylenol PO 650 mg Q4H PRN Administration Headache/Fever/Mild Pain (1-3) Albuterol/Ipratropium 3 ml 03/06/20 15:00 03/07/20 10:31 Duoneb NEB 3 ml QID-RT GERALD Administration Benzonatate 100 mg 03/06/20 15:00 03/07/20 08:21 Tessalon PO 100 mg TID GERALD Administration Budesonide 0.5 mg 03/06/20 18:30 03/07/20 07:02 Pulmicort Neb Solution INH 0.5 mg BID-RT GERALD Administration Cefdinir 300 mg 03/05/20 21:00 03/07/20 08:21 Omnicef PO 300 mg BID GERALD Administration Citalopram Hydrobromide 20 mg 03/05/20 21:00 03/06/20 21:07 Celexa PO 20 mg HS GERALD Administration Enoxaparin Sodium 40 mg 03/04/20 09:00 03/07/20 08:22 Lovenox SC 40 mg 0900 GERALD Administration Fentanyl 25 mcg 03/04/20 16:45 03/04/20 17:57 Duragesic TD 25 mcg Q3D GERALD Administration Guaifenesin 600 mg 03/06/20 21:00 03/07/20 08:21 Mucinex PO 600 mg Q12HR GERALD Administration Guaifenesin/Dextromethorphan 15 ml 03/06/20 04:42 03/06/20 05:17 Diabetic Tussin Dm PO 15 ml Q4H PRN Administration Cough Ibuprofen 400 mg 03/04/20 12:47 03/06/20 04:45 Motrin PO 400 mg Q8H PRN Administration left rib cage pain Lamotrigine 100 mg 03/04/20 09:00 03/07/20 08:21 Lamictal PO 100 mg BID GERALD Administration Lidocaine 1 patch 03/04/20 20:00 03/06/20 21:07 Lidoderm 5% Patch TD 1 patch 2000 GERALD Administration Miscellaneous Medication 1 each 03/05/20 08:00 03/07/20 08:26 Lidocaine Patch Removal TOP 1 each 0800 GERALD Administration Mometasone Furoate/Formoterol Fumar 2 puff 03/04/20 06:30 03/07/20 07:09 Dulera 100 Mcg/5 Mcg Inhaler INH 2 puff BID-RT GERALD Administration Montelukast Sodium 10 mg 03/06/20 21:00 03/06/20 21:07 Singulair PO 10 mg QPM GERALD Administration Nystatin 500,000 units 03/05/20 13:00 03/07/20 08:21 Mycostatin SSW 500,000 units QID GERALD Administration Ondansetron HCl 4 mg 03/04/20 02:52 03/05/20 11:55 Zofran Odt PO 4 mg Q6H PRN Administration Nausea/Vomiting Ondansetron HCl 4 mg 03/04/20 02:52 03/04/20 20:19 Zofran IVP 4 mg Q6H PRN Administration Nausea/Vomiting Pantoprazole Sodium 40 mg 03/04/20 09:00 03/07/20 08:21 Protonix PO 40 mg DAILY GERALD Administration Polyethylene Glycol 17 gm 03/07/20 09:00 03/07/20 08:21 Miralax PO 17 gm DAILY GERALD Administration Prednisone 40 mg 03/07/20 08:00 03/07/20 08:21 Prednisone PO 40 mg QAM-WM GERALD Administration Pregabalin 150 mg 03/04/20 21:00 03/07/20 08:22 Lyrica PO 150 mg TID GERALD Administration Valacyclovir HCl 500 mg 03/04/20 09:00 03/07/20 08:21 Valtrex PO 500 mg DAILY GERALD Administration - Exam General Appearance: awake alert Eye: PERRL, anicteric sclera ENT: no oropharyngeal lesions, moist mucosa Neck: supple, no JVD Heart: RRR, no murmur Respiratory: no wheezes, no rales, rhonchi Gastrointestinal: soft, non-tender, non-distended, normal bowel sounds Extremities: no cyanosis, no edema Neurological: cranial nerve grossly intact, no focal deficits Psychiatric: normal affect, A&O x 3 Hosp A/P (1) Acute respiratory failure with hypoxia Code(s): J96.01 - ACUTE RESPIRATORY FAILURE WITH HYPOXIA Status: Acute (2) PNA (pneumonia) Code(s): J18.9 - PNEUMONIA, UNSPECIFIED ORGANISM Status: Acute Qualifiers: Pneumonia type: due to unspecified organism Laterality: bilateral (3) Chronic pain syndrome Code(s): G89.4 - CHRONIC PAIN SYNDROME Status: Chronic (4) Low back ache Code(s): M54.5 - LOW BACK PAIN Status: Chronic Qualifiers: Chronicity: chronic Back pain laterality: bilateral (5) COPD (chronic obstructive pulmonary disease) Status: Chronic Qualifiers: COPD type: chronic bronchitis - Plan she has seen in the past per patient covid 19 is -ve is on omnicef, nebs, pulmicort, singulair, tessalon, mucinex is needing oxygen to keep spo2 >90%, needs to ambulate and be oob to get it higher, counselled regarding the same she also needs to give her voice a bit of rest to improve laryngitis/?oral candidiasis on lidocaine tts and motrin for pleuritic pain continue her home dose fentanyl tts dc plan home today, CM for help if she needs/qualifies for home O2
[2020-03-07 14:38] VITALS: BP 110/69; TEMP 98.9
--- NOTE | 2020-03-07 15:41 | DIS ---
DATE OF ADMISSION: 03/04/2020 DATE OF DISCHARGE: 03/07/2020 DISCHARGE DISPOSITION: Home. PRIMARY DISCHARGE DIAGNOSES: Pneumonia, chronic obstructive pulmonary disease, exacerbation. SECONDARY DISCHARGE DIAGNOSES: Chronic pain syndrome, low back pain. PROCEDURES DONE DURING HOSPITALIZATION: CT chest showed extensive bibasilar lung consolidation compatible with pneumonia. There is mild right pleural fluid seen. CT abdomen and pelvis done showed no acute process in the abdomen or pelvis. Stool for C. diff negative. Stool for Campylobacter antigen and Shiga toxins were negative. H and H 11 and 34, platelet count 361, white count of 6, had 29% bands on admission. CRP was 30 on admission. Ferritin 142. COVID-19 PCR was negative on 03/04/2020. DISCHARGE MEDICATIONS: 1. Celexa 20 mg daily. 2. Fentanyl transdermal patch 25 mcg q.72 hourly. 3. Advair inhaler 2 puffs daily. 4. Lamictal 100 mg twice daily. 5. Lyrica 150 mg 3 times daily. 6. Spiriva inhaler 18 mcg daily. 7. Tessalon Perles 100 mg p.o. 3 times daily. 8. Mucinex 600 mg twice daily. 9. Omnicef 300 mg p.o. twice daily for 6 days. 10. Lidocaine 5% transdermal patch daily for another 7 days for right-sided pleuritic chest pain from pneumonia. 11. Protonix 40 mg daily. 12. Prednisone tapering dose starting at 10 mg twice daily for 3 days, then daily for 3 days and to discontinue. ALLERGIES: ALLERGIC TO SULFA. DISCHARGE PLAN: The patient to follow up with her primary care physician, Dr. Geovani Hodge, nurse practitioner in 1 week. BRIEF COURSE DURING HOSPITALIZATION: The patient initially came into ER on 03/04/2020, with complaints of nausea, vomiting, diarrhea, and pleuritic chest pain on the right side. The patient also had a temperature of 101.3 degrees in the ER. In view of these symptoms, the patient was admitted to telemetry initially. She has had stool studies done, which have been negative for any infectious etiology. A COVID-[address] chest was ordered in view of the patient's persistent pleuritic chest pain, which revealed bibasilar pneumonia with mild pleural effusion on the right. She was given transdermal lidocaine patch and Motrin, which has helped her pleuritic chest pain. The patient continued to have low saturations and did not mobilize for nearly 2-1/2 days and finally started to mobilize well today. Her saturations were above 92% to 94% on room air. The patient has been counseled to remain active when she goes home. She needs to continue antibiotics as prescribed. She is otherwise hemodynamically stable. The patient has not had any fever for the last 3 days now. Please note, I have seen and examined the patient on the day of discharge. Job ID: [id number]
--- NOTE | 2020-03-08 08:25 | PQF ---
MAURICIO CARNEY VINAYA KUMAR MD [id number] [address] [place] [address] [id number] CLINICAL DOCUMENTATION CLARIFICATION FORM: POST DISCHARGE Addendum to original discharge summary date: ____ Late entry note date: __ DATE:03/08/2020 ATTN: MILAGROS CLANCY MD Please exercise your independent, professional judgment in responding to the clarification form. Clinical indicators are provided on the bottom of this form for your review Please check appropriate box(s) to clarify if the following diagnosis has been ruled in or ruled out: Sepsis [ ] Ruled in diagnosis [ ] Continue to treat [ ] Resolved [ x ] Ruled out diagnosis [ ] Cannot rule out diagnosis [ ] Other diagnosis [ ] Unable to determine For continuity of documentation, please document condition throughout progress notes and discharge summary. Thank You. CLINICAL INDICATORS - SIGNS / SYMPTOMS / LABS - Sepsis- H&P, 03/04, Osvaldo Deluca - Febrile, tachycardic and hypoxic, lactic acid of 2.7- H&P, 03/04, Osvaldo Otero - WBC: 12.2H- Laboratory report, 03/04 - Pulse: 53L on 03/04-- Laboratory report, 03/04 RISK FACTORS - Pneumonia- H&P, 03/04, Osvaldo Deluca - Acute respiratory failure with hypoxia- Hospial PN,03/07, MILAGROS CLANCY MD TREATMENTS - Rocephin.IV- MAR, 03/04 (This form is maintained as a part of the permanent medical record) 2014 [employer] All Rights Reserved [email or web address]
== END 2020-03-07 15:52 | disposition home health service (06) | DRG 193 ==
LOC: 2NO 03-04 01:16 → OBSVTOIN 03-04 01:16 → 2SW 03-04 10:57 → T4-A 03-05 18:52
PROVIDERS: ADMIT Internal Medicine; ATTEND Internal Medicine
PROC: 8E0ZXY6 Isolation (ICD-10-PCS; principal; 2020-03-04)
DX: J18.9 Pneumonia, unspecified organism (principal); J96.01 Acute respiratory failure with hypoxia; J44.0 Chronic obstructive pulmonary disease with (acute) lower respiratory infection; J90 Pleural effusion, not elsewhere classified; E86.0 Dehydration; G89.4 Chronic pain syndrome; E87.6 Hypokalemia; Z20.828 Contact with and (suspected) exposure to other viral communicable diseases; M81.0 Age-related osteoporosis without current pathological fracture; Z88.2 Allergy status to sulfonamides; Z90.710 Acquired absence of both cervix and uterus
CPT/HCPCS: 36415; 71045; 71250; 74177; 80048; 82728; 83605; 83630; 83690; 83735; 84443; 85025; 85379; 86140; 87045; 87046; 87186; 87324; 87328; 87329; 87427; 87449; 87635; 94640; 94664; J0456; J0696; J1650; J2405; J2920; J3490; J7050; J7512; J7620; J7626; Q0162; Q9967; U0003

== ENCOUNTER 2020-12-06 11:49 | Outpatient (CLI) | payer BC | END 2020-12-06 11:50 | disposition home or self-care (01) | LOC: BICRAD 11:49 | PROVIDERS: ATTEND Internal Medicine Critical Care Medicine | DX: R06.00 Dyspnea, unspecified (principal) | CPT/HCPCS: 71046 ==

== ENCOUNTER 2020-12-19 08:19 | Outpatient (CLI) | payer BC | END 2020-12-19 08:20 | disposition home or self-care (01) | LOC: BICMRI 08:19 | PROVIDERS: ATTEND Anesthesiology Pain Medicine | DX: M47.22 Other spondylosis with radiculopathy, cervical region (principal); M50.121 Cervical disc disorder at C4-C5 level with radiculopathy; Z98.890 Other specified postprocedural states; M48.02 Spinal stenosis, cervical region | CPT/HCPCS: 72052; 72141 ==

== ENCOUNTER 2021-09-19 12:57 | Outpatient (CLI) | payer BC ==
[~2021-09-19 12:57] MED LIST: Iopamidol-370 76% 500 ML 1 ML ONE
== END 2021-09-19 12:58 | disposition home or self-care (01) ==
LOC: BICCT 12:57
PROVIDERS: ATTEND Psychiatry & Neurology Neurology
DX: R25.1 Tremor, unspecified (principal)
CPT/HCPCS: 70470

== ENCOUNTER 2022-10-05 13:49 | Outpatient (CLI) | payer BC | END 2022-10-05 13:50 | disposition home or self-care (01) | LOC: BICCT 13:49 | PROVIDERS: ATTEND Internal Medicine Critical Care Medicine | DX: R04.2 Hemoptysis (principal); K80.20 Calculus of gallbladder without cholecystitis without obstruction; J98.11 Atelectasis | CPT/HCPCS: 71260; 82565 ==

== ENCOUNTER 2022-12-24 14:51 | Outpatient (CLI) | payer BC | END 2022-12-24 14:52 | disposition home or self-care (01) | LOC: BICRAD 14:51 | PROVIDERS: ATTEND Anesthesiology Pain Medicine | DX: M25.512 Pain in left shoulder (principal) ==

== ENCOUNTER 2023-01-03 12:50 | Outpatient (CLI) | payer BC | END 2023-01-03 12:51 | disposition home or self-care (01) | LOC: BICMRI 12:50 | PROVIDERS: ATTEND Anesthesiology Pain Medicine | DX: M47.22 Other spondylosis with radiculopathy, cervical region (principal); M47.24 Other spondylosis with radiculopathy, thoracic region; M50.11 Cervical disc disorder with radiculopathy, high cervical region; M48.02 Spinal stenosis, cervical region; M25.78 Osteophyte, vertebrae; M47.25 Other spondylosis with radiculopathy, thoracolumbar region; M47.26 Other spondylosis with radiculopathy, lumbar region; R20.0 Anesthesia of skin; Z98.890 Other specified postprocedural states | CPT/HCPCS: 72052; 72141; 72146; 72148 ==

== ENCOUNTER 2023-01-08 14:50 | Outpatient (CLI) | payer BC | END 2023-01-08 14:51 | disposition home or self-care (01) | LOC: SCSMRI 14:50 | PROVIDERS: ATTEND Anesthesiology Pain Medicine | DX: M75.112 Incomplete rotator cuff tear or rupture of left shoulder, not specified as traumatic (principal); S43.432A Superior glenoid labrum lesion of left shoulder, initial encounter; M19.012 Primary osteoarthritis, left shoulder ==

== ENCOUNTER 2024-08-20 14:29 | Outpatient (CLI) | payer BC | END 2024-08-20 14:30 | disposition home or self-care (01) | LOC: RAD 14:29 | PROVIDERS: ATTEND Internal Medicine Critical Care Medicine | DX: R06.00 Dyspnea, unspecified (principal); J18.9 Pneumonia, unspecified organism | CPT/HCPCS: 71046 ==

== ENCOUNTER 2024-10-12 12:58 | Outpatient (CLI) | payer BC | END 2024-10-12 12:59 | disposition home or self-care (01) | LOC: RAD 12:58 | PROVIDERS: ATTEND Internal Medicine Critical Care Medicine | DX: R06.00 Dyspnea, unspecified (principal) | CPT/HCPCS: 71046 ==